=== PATIENT | male | born 2000 | race Caucasian/White ===

== ENCOUNTER 2020-12-11 21:54 | Emergency (ER) | payer MEDICAID, SELFPAY ==
[2020-12-11] MEDS ORDERED: HYDROcodone/Acetaminophen 10/325 mg Tablet ONE (23:46)
== END 2020-12-11 23:54 | disposition home or self-care (01) ==
LOC: NAV ERS 21:54
DX: S56.922A Laceration of unspecified muscles, fascia and tendons at forearm level, left arm, initial encounter (principal); S52.612D Displaced fracture of left ulna styloid process, subsequent encounter for closed fracture with routine healing; F17.210 Nicotine dependence, cigarettes, uncomplicated; W23.0XXA Caught, crushed, jammed, or pinched between moving objects, initial encounter

== ENCOUNTER 2021-12-27 09:48 | Emergency (ER) | payer MEDICAID, SELFPAY | END 2021-12-27 11:09 | disposition home or self-care (01) | LOC: NAV ERS 09:48 | DX: J06.9 Acute upper respiratory infection, unspecified (principal); F17.210 Nicotine dependence, cigarettes, uncomplicated; Z20.822 Contact with and (suspected) exposure to COVID-19 | CPT/HCPCS: 87804; 99283; U0003; U0005 ==

== ENCOUNTER 2022-03-17 18:26 | Emergency (ER) | payer BC, SELFPAY | END 2022-03-17 20:00 | disposition home or self-care (01) | LOC: NAV ERS 18:26 | DX: J02.9 Acute pharyngitis, unspecified (principal); J06.9 Acute upper respiratory infection, unspecified; R11.0 Nausea; F17.210 Nicotine dependence, cigarettes, uncomplicated; Z20.822 Contact with and (suspected) exposure to COVID-19 | CPT/HCPCS: 87081; 87430; 87804; 99284; U0003; U0005 ==

== ENCOUNTER 2022-04-21 12:37 | Emergency (ER) | payer BC ==
[2022-04-21] MEDS ORDERED: Sodium Chloride 0.9% 0 ML ONE (13:14)
[2022-04-21] MEDS ORDERED: Metoclopramide HCl 10 MG/2 ML VIAL ONE (13:14)
[2022-04-21] MEDS ORDERED: diphenhydrAMINE 50 MG/ML VIAL ONE (13:14)
[2022-04-21] MEDS ORDERED: Ketorolac Tromethamine 30 MG/ML VIAL ONE (13:14)
[2022-04-21] MEDS ORDERED: Ondansetron ODT 4 MG TAB ONE (13:31)
[2022-04-21] MEDS ORDERED: Fioricet 325/50/40 mg Tablet PO SCH (13:45)
[2022-04-21 13:50] LABS: #Basophils 0.1 thou/uL (0.0-0.2); #Eosinphils 0.1 thou/uL (0.0-0.7); #Lymphocytes 1.5 thou/uL (1.20-3.40); #Monocytes 0.4 thou/uL (0.11-0.59); #Neutrophils 3.2 thou/uL (1.40-6.50); %Basophils 1.3 % (0.0-1.0); %Eosinophils 1.8 % (0.0-10.0); %Lymphocytes 28.7 % (21.0-51.0); %Monocytes 6.9 % (0.0-10.0); %Neutrophils 61.4 % (42.0-75.0); Hemoglobin 15.4 g/dL (14.0-18.0); Mean Corpuscular HGB CONC 33.5 g/dL (32.0-36.0); Mean Corpuscular Hemoglobin 31.4 pg (27.0-31.0); Mean Corpuscular Volume 93.7 fl (78.0-98.0); Mean Platelet Volume 7.1 fL (7.4-10.4); Platelet Count 261 10x3/uL (130-400); RBC Distribution Width 11.2 % (11.5-14.5); Red Blood Cell (RBC) Count 4.89 mill/uL (4.70-6.10); White Blood Cell (WBC) Count 5.2 10x3/uL (4.8-10.8)
[2022-04-21 13:59] LABS: ALT (SGPT) 25 U/L (8-55); AST (SGOT) 11 U/L (5-34); Albumin 4.3 g/dL (3.5-5.0); Alkaline Phosphatase 72 U/L (40-110); Anion Gap 13 mmol/L (10-20); BUN (Urea Nitrogen) 11 mg/dL (8.9-20.6); Bilirubin, Total 0.5 mg/dL (0.2-1.2); Calc. Creatinine Clearance 0 mL/min (70-130); Carbon Dioxide 26 mmol/L (22-29); Chloride 105 mmol/L (98-107); Estimated GFR 126; Globulin 2.3 g/dL (2.4-3.5); Glucose 97 mg/dL (70-105); Potassium 4.1 mmol/L (3.5-5.1); Protein, Total 6.6 g/dL (6.0-8.3); Sodium 140 mmol/L (136-145)
== END 2022-04-21 14:20 | disposition home or self-care (01) ==
LOC: NAV ERS 12:37
DX: G43.909 Migraine, unspecified, not intractable, without status migrainosus (principal); R11.2 Nausea with vomiting, unspecified; F17.210 Nicotine dependence, cigarettes, uncomplicated
CPT/HCPCS: 36415; 80053; 85025; 99284; J1200; J1885; J2765; J7050; Q0162

== ENCOUNTER 2022-05-15 11:24 | Emergency (ER) | payer BC ==
[2022-05-15] MEDS ORDERED: Dexamethasone 4 MG TAB ONE (11:48)
[2022-05-15] MEDS ORDERED: Ibuprofen 200 MG TAB ONE (11:48)
== END 2022-05-15 12:45 | disposition home or self-care (01) ==
LOC: NAV ERS 11:24
DX: B34.9 Viral infection, unspecified (principal); G43.909 Migraine, unspecified, not intractable, without status migrainosus; F17.210 Nicotine dependence, cigarettes, uncomplicated
CPT/HCPCS: 87081; 87430; 87804; 99283; J8540

== ENCOUNTER 2022-05-17 20:36 | Emergency (ER) | payer BC ==
[2022-05-17 21:28] LABS: #Basophils 0.1 thou/uL (0.0-0.2); #Eosinphils 0.1 thou/uL (0.0-0.7); #Lymphocytes 2.6 thou/uL (1.20-3.40); #Monocytes 0.7 thou/uL (0.11-0.59); #Neutrophils 4.6 thou/uL (1.40-6.50); %Basophils 0.9 % (0.0-1.0); %Lymphocytes 32.3 % (21.0-51.0); %Monocytes 8.5 % (0.0-10.0); %Neutrophils 57.4 % (42.0-75.0); Hemoglobin 14.6 g/dL (14.0-18.0); Mean Corpuscular Hemoglobin 31.2 pg (27.0-31.0); Mean Corpuscular Volume 91.8 fl (78.0-98.0); Mean Platelet Volume 6.6 fL (7.4-10.4); Platelet Count 253 10x3/uL (130-400); RBC Distribution Width 10.9 % (11.5-14.5); Red Blood Cell (RBC) Count 4.68 mill/uL (4.70-6.10); White Blood Cell (WBC) Count 7.9 10x3/uL (4.8-10.8)
[2022-05-17 21:49] LABS: CK (CPK) 287 U/L (30-200); Phosphorus 4.1 mg/dL (2.3-4.7)
[2022-05-17 21:52] LABS: ALT (SGPT) 41 U/L (8-55); AST (SGOT) 19 U/L (5-34); Albumin 4.2 g/dL (3.5-5.0); Alkaline Phosphatase 67 U/L (40-110); Anion Gap 14 mmol/L (10-20); BUN (Urea Nitrogen) 16 mg/dL (8.9-20.6); Bilirubin, Total 0.2 mg/dL (0.2-1.2); Calc. Creatinine Clearance 0 mL/min (70-130); Calcium 8.9 mg/dL (7.8-10.44); Carbon Dioxide 24 mmol/L (22-29); Chloride 106 mmol/L (98-107); Estimated GFR 113; Glucose 104 mg/dL (70-105); Magnesium 2.1 mg/dL (1.6-2.6); Protein, Total 6.2 g/dL (6.0-8.3); Sodium 142 mmol/L (136-145)
[2022-05-17 21:55] LABS: Potassium 2.2 mmol/L (3.5-5.1)
[2022-05-17] MEDS ORDERED: Potassium Chloride 20 MEQ TAB ONE ×2 (22:10→23:11)
== END 2022-05-18 | disposition home or self-care (01) ==
LOC: NAV ERS 20:36
DX: E87.6 Hypokalemia (principal); F17.210 Nicotine dependence, cigarettes, uncomplicated
CPT/HCPCS: 80053; 82550; 83605; 83735; 84100; 85025; 86140; 99284